=== PATIENT | male | born 1945 | race Caucasian/White ===

== ENCOUNTER → 2023-09-21 | Outpatient (CLI) | payer MEDICARE, OTHER ==
[~2023-09-21] MED LIST: BARIUM SULFATE 176 GM SUSP.RECON ONE; EZ-HD SUSPENSION(BARIUM SULFATE 340GM) PO ONE; SIMETHICONE/SOD BICARB/CIT AC 1 EACH GRAN.EF.PK ONE
== END | disposition home or self-care (01) ==
LOC: RAD 09:37
PROVIDERS: ATTEND Internal Medicine Critical Care Medicine
DX: T18.9XXD Foreign body of alimentary tract, part unspecified, subsequent encounter (principal); W44.8 Other foreign body entering into or through a natural orifice
CPT/HCPCS: 74246; J7517